=== PATIENT | female | born 1945 | race Caucasian/White ===

== ENCOUNTER 2021-06-20 08:49 | Observation (INO) ==
[2021-06-20] MEDS ORDERED: *HR* Labetalol 20 MG/4 ML SYRINGE IVP ONE (09:11)
[2021-06-20 09:54] LABS: Hematocrit 37.5 % (35.3-44.9); Hemoglobin 12.5 g/dL (11.5-15.4); Mean Corpuscular HGB Conc 33.3 g/dL (31.6-35.5); Mean Corpuscular Volume 98.9 fL (83.0-100.0); Red Blood Count 3.79 M/mcL (3.82-4.97); White Blood Count 5.6 K/mcL (4.3-11.1)
[2021-06-20 09:55] LABS: Basophils % 0.7 %; Eosinophils # 0.2 K/mcL (0.0-0.6); Eosinophils % 3.8 %; Immature Granulocytes % 0.4 % (0-4); Lymphocytes # 1.2 K/mcL (0.6-4.6); Lymphocytes % 21.1 %; Mean Platelet Volume 10.1 fL (9.4-12.4); Monocytes # 0.4 K/mcL (0.0-1.3); Monocytes % 6.8 %; Neutrophils # 3.8 K/mcL (1.6-8.9); Platelet Count 209 K/mcL (140-400); Red Cell Distribution Width 13.6 % (11.5-14.5); Segmented Neutrophils % 67.2 %
[2021-06-20 10:07] LABS: Activated Partial Thrombo Time 33.4 Seconds (26.0-36.0); INR 1.1; Prothrombin Time 12.4 Seconds (9.4-12.1)
[2021-06-20 10:26] LABS: BUN/Creatinine Ratio 14 (6-26); Blood Urea Nitrogen 11 mg/dL (8-23); Calcium 8.8 mg/dL (8.6-10.3); Carbon Dioxide 28 mEq/L (23-29); Chloride 107 mEq/L (98-107); Glucose 142 mg/dL (70-105); Magnesium 1.9 mg/dL (1.6-2.6); Osmolality,Calculated 298 (280-300); Potassium 3.4 mEq/L (3.5-5.1); Sodium 143 mEq/L (136-145); eGFR For African Americans > 60 (> 60); eGFR For Non-African Americans > 60 (> 60)
[2021-06-20 10:27] LABS: Thyroid Stimulating Hormone 1.575 mcIU/mL (0.340-5.600)
[2021-06-20 11:28] LABS: Troponin I < 0.03 ng/mL (< 0.04)
[2021-06-20] MEDS ORDERED: Naloxone 0.4 MG/ML INJ IVP PRN (13:11)
[2021-06-20] MEDS ORDERED: Apixaban 5 MG TABLET PO SCH (13:30)
[2021-06-20] MEDS: *HR* Rivaroxaban 10 MG TABLET PO SCH (17:10)
[2021-06-20] MEDS: Metoprolol XL (24 HR) Succ 25 MG TAB.ER.24H PO SCH ×2 (17:12→19:33)
[2021-06-20] MEDS ORDERED: *HR* Metoprolol 5 MG/5 ML VIAL IVP ONE (22:24)
[2021-06-20] MEDS ORDERED: Acetaminophen 325 MG TABLET PO PRN (23:06)
[2021-06-21 05:41] LABS: Hemoglobin 11.5 g/dL (11.5-15.4); Mean Corpuscular HGB Conc 33.8 g/dL (31.6-35.5); Mean Corpuscular Hemoglobin 34.3 pg (28.0-33.3); Mean Corpuscular Volume 101.5 fL (83.0-100.0); Mean Platelet Volume 10.1 fL (9.4-12.4); Platelet Count 200 K/mcL (140-400); Red Blood Count 3.35 M/mcL (3.82-4.97); Red Cell Distribution Width 14.1 % (11.5-14.5); White Blood Count 5.1 K/mcL (4.3-11.1)
[2021-06-21 05:59] LABS: BUN/Creatinine Ratio 13 (6-26); Blood Urea Nitrogen 11 mg/dL (8-23); Calcium 8.2 mg/dL (8.6-10.3); Carbon Dioxide 29 mEq/L (23-29); Chloride 109 mEq/L (98-107); Glucose 120 mg/dL (70-105); Osmolality,Calculated 297 (280-300); Potassium 3.6 mEq/L (3.5-5.1); Sodium 143 mEq/L (136-145); eGFR For African Americans > 60 (> 60); eGFR For Non-African Americans > 60 (> 60)
[2021-06-21] MEDS ORDERED: *HR* Metoprolol 5 MG/5 ML VIAL IVP ONE (06:02)
[2021-06-21] MEDS: Metoprolol XL (24 HR) Succ 25 MG TAB.ER.24H PO SCH ×2 (09:38→20:41)
[2021-06-21] MEDS ORDERED: Fluticasone Propionate Nasal 50 MCG/SPRAY BOTTLE NS SCH (10:00)
[2021-06-21] MEDS: hydroCHLOROthiazide 25 MG TABLET PO SCH (10:14)
[2021-06-21] MEDS: Famotidine 20 MG TABLET PO SCH (10:14)
[2021-06-21] MEDS: Cyanocobalamin (B-12) 1,000 MCG TABLET PO SCH (10:15)
[2021-06-21] MEDS: Ascorbic Acid 500 MG TABLET PO SCH (10:15)
[2021-06-21] MEDS: *HR* Rivaroxaban 10 MG TABLET PO SCH (16:35)
[2021-06-21] MEDS ORDERED: traZODone 50 MG TABLET PO PRN (21:00)
[2021-06-22 06:56] LABS: Hematocrit 35.2 % (35.3-44.9); Hemoglobin 12.1 g/dL (11.5-15.4); Mean Corpuscular HGB Conc 34.4 g/dL (31.6-35.5); Mean Corpuscular Volume 98.9 fL (83.0-100.0); Mean Platelet Volume 10.5 fL (9.4-12.4); Platelet Count 199 K/mcL (140-400); Red Blood Count 3.56 M/mcL (3.82-4.97); Red Cell Distribution Width 13.9 % (11.5-14.5); White Blood Count 5.2 K/mcL (4.3-11.1)
[2021-06-22 07:07] VITALS: BP 108/72; PULSE 82; TEMP 98; O2SAT 93
[2021-06-22 07:10] LABS: BUN/Creatinine Ratio 13 (6-26); Blood Urea Nitrogen 11 mg/dL (8-23); Carbon Dioxide 24 mEq/L (23-29); Chloride 108 mEq/L (98-107); Glucose 110 mg/dL (70-105); Osmolality,Calculated 290 (280-300); Potassium 3.7 mEq/L (3.5-5.1); Sodium 140 mEq/L (136-145); eGFR For African Americans > 60 (> 60); eGFR For Non-African Americans > 60 (> 60)
[2021-06-22] MEDS: hydroCHLOROthiazide 25 MG TABLET PO SCH (07:35)
[2021-06-22] MEDS: Ascorbic Acid 500 MG TABLET PO SCH (07:35)
[2021-06-22] MEDS: Cyanocobalamin (B-12) 1,000 MCG TABLET PO SCH (07:36)
[2021-06-22] MEDS: Famotidine 20 MG TABLET PO SCH (07:36)
[2021-06-22] MEDS: Metoprolol XL (24 HR) Succ 25 MG TAB.ER.24H PO SCH (07:36)
[2021-06-22 10:55] LABS: Calcium 8.6 mg/dL (8.6-10.3)
== END 2021-06-22 11:37 | disposition home or self-care (01) ==
LOC: 3BNU 08:49 → EMEROOARM 08:49 → SUATTDRO 13:23 → 3BNU 14:56
PROVIDERS: ADMIT Student in an Organized Health Care Education/Training Program; ATTEND Registered Nurse